=== PATIENT | female | born 1985 | race African-American/Black ===

== ENCOUNTER 2019-05-25 06:42 | Emergency (ER) | payer OTHER | END 2019-05-25 08:15 | disposition home or self-care (01) | LOC: ERS 06:42 | DX: S29.012A Strain of muscle and tendon of back wall of thorax, initial encounter (principal); E03.9 Hypothyroidism, unspecified; Z79.899 Other long term (current) drug therapy; X50.0XXA Overexertion from strenuous movement or load, initial encounter | CPT/HCPCS: 99283 ==